=== PATIENT | female | born 2000 | race Caucasian/White ===

== ENCOUNTER 2022-05-13 09:49 | Outpatient (CLI) | payer BC, SELFPAY ==
--- NOTE | 2022-05-13 10:15 | MR_ITS ---
[facility] [address] [facility] [address] Phone:?[phone] Fax:?[phone] Referring Physician Information: Jamal Vallejo M.D. [address] [facility] [address] Phone:?[phone] Fax:?[phone] Patient:Kassandra Hagan D.O.B:?2000 Sex:?Female Phone:?[phone] [facility] MRN:?[id number] Exam Date:?05/13/2022 ? EXAM: MRI of the RIGHT KNEE, without contrast CLINICAL: Female, 22 years old, with medial right knee pain for one month. INDICATION: Evaluate for medial meniscus tear versus other knee derangement etiology. PRIOR SURGERY: None reported. PLAIN FILMS: None available. COMPARISONS: No prior MRIs available. TECHNICAL: Using a 1.5 Alana MR scanner and a localizing surface coil: 3.0 mm?sagittals: PD, PDFS 3.0 mm?coronals: PD, STIR 3.0 mm?axials: PD, T2FS SEDATION: None. CONTRAST: None. IMPRESSION: 1. Suspected ill-defined intrasubstance degeneration or contusion and mild enlargement of the medial meniscus centered at junction of its middle and posterior thirds without convincing defined articular surface tear. 2. No lateral meniscus tear. 3. No cruciate or collateral ligament injuries. 4. 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 5. Minimal, perhaps physiologic, knee effusion FINDINGS: Knee joint: Effusion: Minimal right knee effusion. Popliteal cyst: None. Loose bodies: None. Subcutaneous and extra-articular soft tissues: Unremarkable. Ligaments: ACL: Intact ACL anteromedial and posterolateral bundles, without sprain or tear. PCL: Intact PCL, without acute or chronic injury. MCL: Intact MCL superficial and deep layers, without injury. FCL: Intact FCL, without injury. Posterolateral corner: No posterolateral corner soft tissue injury. Popliteus, biceps femoris, iliotibial band, popliteofibular ligament and lateral gastrocnemius are intact. Posteromedial corner: No posteromedial corner soft tissue injury. Semimembranosus, pes anserine tendons and posterior oblique ligament are without injury, tendinopathy or bursitis. Extensor mechanism: Patellar tendon: Intact, without tendinopathy. Quadriceps tendon: Intact, without tendinopathy. Retinacula: Medial and lateral retinacula are intact. Fat pads: Unremarkable infrapatellar Hoffa's, quadriceps and prefemoral fat pads. Medial compartment: Medial meniscus: Mild towards moderate globular signal alteration within central substance of the medial meniscus centered at junction of its middle and posterior thirds includes greater than typically expected for retained juvenile vascularity, appearing in keeping with meniscus degeneration or contusion, but without convincing exit through articular surface and therefore without convincing defined articular surface tear (sagittal images 25-21; coronal images 23-19). No fragment displacement. No parameniscal cyst. No posterior root disruption or peripheral meniscal extrusion. Medial femoral condyle: No chondromalacia or osteochondral abnormality. Medial tibial plateau: No chondromalacia or osteochondral abnormality. Lateral compartment: Lateral meniscus: No articular surface, meniscosynovial junction or root tear. No displacement, extrusion or parameniscal cyst. Lateral femoral condyle: No chondromalacia or osteochondral abnormality. Lateral tibial plateau: No chondromalacia or osteochondral abnormality. Patellofemoral joint: Patella: Inhomogeneity of signal intensity of articular cartilage of the central median ridge of the patella could reflect mild grade I chondromalacia but without convincing surface irregularity/defect or subjacent marrow edema (axial PDFS series 4, images 9-12). Trochlea: No chondromalacia or osteochondral abnormality. Proximal tibiofibular joint: Unremarkable, without evidence of ligament sprain injury, joint effusion or adjacent marrow edema. Bones: No stress/occult fractures or other marrow edema/pathology. Neurovascular: Popliteal artery: No demonstrable popliteal artery entrapment or predisposing gastrocnemius variant. No aneurysm or pseudoaneurysm. Popliteal vein: No fusiform or saccular venous aneurysm. Anterior tibial artery: No aberrant high-origin anterior tibial artery. Tibial nerve: No entrapment or distal edema/swelling at the soleal sling. Popliteal nerve: No intrinsic or extrinsic mass or edema/swelling. Common peroneal nerve: Normal to fibular head and neck level included. [facility] Electronically signed on 05/13/2022 5:24:00 PM by Christopher Caban M.D.
== END 2022-05-13 09:50 | disposition home or self-care (01) ==
PROVIDERS: Visit Provider Orthopaedic Surgery
DX: M25.561 Pain in right knee (principal); M25.461 Effusion, right knee
CPT/HCPCS: 73721

== ENCOUNTER 2023-02-13 12:32 | Outpatient (CLI) | payer BC, SELFPAY ==
[2023-02-13 23:44] LABS: Chlamydia DNA Amplified* NOT DETECTED (No Detected); GC DNA Amplified* NOT DETECTED (No Detected)
== END 2023-02-13 12:33 | disposition home or self-care (01) ==
LOC: NFLDUCREF 12:32
PROVIDERS: Visit Provider Physician Assistant
DX: R30.0 Dysuria (principal)
CPT/HCPCS: 87086; 87491; 87591